=== PATIENT | female | born 1970 | race Caucasian/White ===

== ENCOUNTER 2017-05-16 10:42 | Emergency (ER) | payer MEDICAID ==
[~2017-05-16] VITALS: Ht 157.5 cm; Wt 94.5 kg
[~2017-05-16 10:42] MED LIST: ALBU0.63 NEB; ALBU18HF INH; ALBU8.5H5 INH; ASPI-496 PO; ATOR10TA9 PO; CHLO25TA PO; CITA20TA9 PO; GABA-826 PO; INSU100C5 SQ-INSULIN; INSU100V8 SQ; LISI-170 PO; LISINOPRIL PO; METF10002 PO; METO-93 PO; OMEP-110 PO; SUMA25TA4 PO
[2017-05-16 12:47] VITALS: BP 118/80
== END 2017-05-16 12:49 | disposition home or self-care (01) ==
LOC: ED 12:30
DX: S93.521A Sprain of metatarsophalangeal joint of right great toe, initial encounter (principal); W10.9XXA Fall (on) (from) unspecified stairs and steps, initial encounter; Y93.89 Activity, other specified; Y92.410 Unspecified street and highway as the place of occurrence of the external cause; Y99.8 Other external cause status
CPT/HCPCS: 93005; 99284

== ENCOUNTER 2017-11-16 17:54 | Emergency (ER) | payer MEDICAID, OTHER ==
[~2017-11-16] VITALS: Ht 157.5 cm; Wt 78.9 kg
[2017-11-16] MEDS ORDERED: KETOROLAC 30 MG/1 ML ONE (18:27)
[2017-11-16] MEDS ORDERED: PROCHLORPERAZINE 5 MG/ML, 2ML ONE (18:27)
[2017-11-16] MEDS ORDERED: DIPHENHYDRAMINE 50 MG/ML, 1ML ONE (18:27)
[2017-11-16] MEDS ORDERED: SODIUM CHLORIDE 0.9% 1,000ML IVBOLUS ONE (18:30)
[2017-11-16] MEDS ORDERED: DIPHENHYDRAMINE 50 MG/ML, 1ML IVPush ONE (18:30)
[2017-11-16] MEDS ORDERED: SODIUM CHLORIDE FLUSH 10ML SYR IVF ONE (18:30)
[2017-11-16] MEDS ORDERED: PROCHLORPERAZINE 5 MG/ML, 2ML IVPush ONE (18:30)
[2017-11-16] MEDS ORDERED: KETOROLAC 30 MG/1 ML IVPush ONE (18:30)
[2017-11-16 19:13] LABS: BASOPHILS # (AUTO) 0.02 x10^3/uL (0-0.1); BASOPHILS % (AUTO) 0 % (0-1); EOSINOPHILS # (AUTO) 0.07 x10^3/uL (0-0.4); EOSINOPHILS % (AUTO) 1 % (1-7); LYMPHOCYTES # (AUTO) 2.51 x10^3/uL (1-3.4); LYMPHOCYTES % (AUTO) 42 % (22-44); MD NO; MEAN CORPUSCULAR HEMOGLOBIN 21.4 pg (27.0-34.8); MEAN CORPUSCULAR HGB CONC 31.7 g/dL (32.4-35.8); MEAN CORPUSCULAR VOLUME 67.4 fL (80-100); MEAN PLATELET VOLUME 9.3 fL (7.4-10.4); MONOCYTES # (AUTO) 0.33 x10^3/uL (0.2-0.8); MONOCYTES % (AUTO) 5 % (2-9); NEUTROPHILS # (AUTO) 3.11 x10^3/uL (1.8-6.8); NEUTROPHILS % (AUTO) 52 % (42-75); PLATELET COUNT 319 x10^3/uL (130-400); RED BLOOD COUNT 5.24 x10^6/uL (3.82-5.3); RED CELL DISTRIBUTION WIDTH 19.8 % (9.6-15.2)
[2017-11-16 19:23] LABS: ALBUMIN 3.5 g/dL (3.4-5.0); ANION GAP 7 mmol/L (5-15); CALCIUM 8.6 mg/dL (8.5-10.1); CHLORIDE 109 mmol/L (98-107); CREATININE 0.78 mg/dL (0.55-1.02)
[2017-11-16 19:32] LABS: MICROSCOPIC INDICATED
[2017-11-16 19:55] LABS: CULTURE INDICATED? NO
[2017-11-16 20:41] VITALS: BP 158/84
== END 2017-11-16 20:42 | disposition home or self-care (01) ==
LOC: ED 19:07
DX: G43.009 Migraine without aura, not intractable, without status migrainosus (principal); I10 Essential (primary) hypertension; E11.9 Type 2 diabetes mellitus without complications
CPT/HCPCS: 36415; 76770; 80048; 81001; 82040; 85025; 96361; 96374; 96375; 99285; J0780; J1200; J1885; J7030

== ENCOUNTER 2018-08-02 17:49 | Emergency (ER) | payer BC ==
[~2018-08-02] VITALS: Ht 157.5 cm; Wt 91.0 kg
[2018-08-02] MEDS ORDERED: SUMATRIPTAN 25 MG TABLET PO PRN (19:00)
[2018-08-02] MEDS ORDERED: ACETAMINOPHEN 500 MG TABLET PO ONE (19:00)
[2018-08-02] MEDS ORDERED: ACETAMINOPHEN 500 MG TABLET ONE (19:05)
[2018-08-02] MEDS ORDERED: SUMATRIPTAN 25 MG TABLET ONE (19:05)
[2018-08-02 19:12] LABS: MEAN CORPUSCULAR HEMOGLOBIN 21.1 pg (27.0-34.8); MEAN CORPUSCULAR HGB CONC 31.7 g/dL (32.4-35.8); MEAN CORPUSCULAR VOLUME 66.4 fL (80-100); MEAN PLATELET VOLUME 8.3 fL (7.4-10.4); PLATELET COUNT 402 x10^3/uL (130-400); RED BLOOD COUNT 4.63 x10^6/uL (3.82-5.3)
[2018-08-02 19:24] LABS: ALBUMIN 3.1 g/dL (3.4-5.0); ANION GAP 8 mmol/L (5-15); CALCIUM 8.4 mg/dL (8.5-10.1); CHLORIDE 112 mmol/L (98-107); CREATININE 0.67 mg/dL (0.55-1.02)
[2018-08-02 19:28] LABS: MD YES
[2018-08-02 19:30] LABS: ANISOCYTOSIS 1+; HYPOCHROMIA 1+; LYMPH#(MANUAL) 2.46 x10^3/uL (1-3.4); LYMPHS% (MANUAL) 41 % (22-44); MICROCYTOSIS 1+; MONOS#(MANUAL) 0.18 x10^3/uL (0.3-2.7); MONOS% (MANUAL) 3 % (2-9); SEG#(MANUAL) 3.36 x10^3/uL (1.8-6.8); SEGS% (MANUAL) 56 % (42-75)
[2018-08-02 19:31] LABS: POLYCHROMASIA 1+
[2018-08-02 19:32] LABS: <PLATELET ESTIMATE> INCREASED; <PLT MORPHOLOGY> NORMAL PLT MORPH; TARGET CELLS 1+
[2018-08-02 20:06] VITALS: BP 172/89
== END 2018-08-02 20:09 | disposition home or self-care (01) ==
LOC: ED 19:00
DX: K02.9 Dental caries, unspecified (principal); K08.89 Other specified disorders of teeth and supporting structures; G43.019 Migraine without aura, intractable, without status migrainosus; I10 Essential (primary) hypertension; F17.200 Nicotine dependence, unspecified, uncomplicated; E11.9 Type 2 diabetes mellitus without complications; J45.909 Unspecified asthma, uncomplicated
CPT/HCPCS: 36415; 80048; 82040; 85025; 99284

== ENCOUNTER 2019-02-10 12:42 | Emergency (ER) | payer SELFPAY ==
[~2019-02-10] VITALS: Ht 157.5 cm; Wt 84.0 kg
--- NOTE | 2019-02-10 14:50 | NUR ---
AMBULATORY TO ROOM AT THIS TIME
--- NOTE | 2019-02-10 15:05 | NUR ---
BODYACHES, CHILLS, KNIGHT, COUGH STARTED SUNDAY
--- NOTE | 2019-02-10 15:12 | NUR ---
LAB AT BEDSIDE OBTAINING BLOOD. TECH IN ROOM TO DO EKG
[2019-02-10] MEDS ORDERED: ACETAMINOPHEN 500 MG TABLET PO ONE (15:30)
[2019-02-10 15:36] LABS: BASOPHILS % (AUTO) 0 % (0-1); EOSINOPHILS % (AUTO) 0 % (1-7); LYMPHOCYTES # (AUTO) 0.23 x10^3/uL (1-3.4); LYMPHOCYTES % (AUTO) 4 % (22-44); MD NO; MEAN CORPUSCULAR HEMOGLOBIN 21.9 pg (27.0-34.8); MEAN CORPUSCULAR HGB CONC 31.7 g/dL (32.4-35.8); MEAN PLATELET VOLUME 9.1 fL (7.4-10.4); MONOCYTES # (AUTO) 0.63 x10^3/uL (0.2-0.8); MONOCYTES % (AUTO) 12 % (2-9); NEUTROPHILS # (AUTO) 4.39 x10^3/uL (1.8-6.8); NEUTROPHILS % (AUTO) 84 % (42-75); PLATELET COUNT 271 x10^3/uL (130-400); RED BLOOD COUNT 5.21 x10^6/uL (3.82-5.3); RED CELL DISTRIBUTION WIDTH 18.5 % (9.6-15.2)
[2019-02-10 15:46] LABS: ALBUMIN 3.9 g/dL (3.4-5.0); ANION GAP 9 mmol/L (5-15); CALCIUM 8.5 mg/dL (8.5-10.1); CHLORIDE 106 mmol/L (98-107); CREATININE 1.04 mg/dL (0.55-1.02)
--- NOTE | 2019-02-10 15:56 | NUR ---
assumed care of pt while primary rn at lunch. flu swab recollected and sent to lab.
--- NOTE | 2019-02-10 16:33 | NUR ---
PT AMBULATED TO BATHROOM WITHOUT ASSISTANCE TO GIVE URINE SAMPLE, USING RAILS ON SIDE
--- NOTE | 2019-02-10 16:40 | NUR ---
TOLERATING ICE CHIPS
[2019-02-10 16:55] LABS: MICROSCOPIC NOT IND
[2019-02-10 17:01] LABS: RAPID INFLUENZA A Negative (Negative); RAPID INFLUENZA B Negative (Negative)
[2019-02-10 17:04] LABS: CULTURE INDICATED? NO
[2019-02-10] MEDS ORDERED: POTASSIUM CHLORIDE 20 MEQ TAB.ER.PRT PO ONE (17:30)
[2019-02-10] MEDS ORDERED: ACETAMINOPHEN 500 MG TABLET ONE (17:52)
[2019-02-10] MEDS ORDERED: POTASSIUM CHLORIDE 20 MEQ TAB.ER.PRT ONE (17:52)
[2019-02-10 18:00] VITALS: BP 149/80
== END 2019-02-10 18:02 | disposition home or self-care (01) ==
LOC: ED 16:24
DX: J06.9 Acute upper respiratory infection, unspecified (principal); E87.6 Hypokalemia; I10 Essential (primary) hypertension; E11.9 Type 2 diabetes mellitus without complications; J45.909 Unspecified asthma, uncomplicated
CPT/HCPCS: 36415; 71046; 80048; 81003; 82040; 83605; 83880; 85025; 87040; 87400; 93005; 99284

== ENCOUNTER 2019-12-04 17:44 | Emergency (ER) | payer OTHER ==
[~2019-12-04] VITALS: Ht 162.6 cm; Wt 78.0 kg
[2019-12-04] MEDS ORDERED: DULO30CA44 PO (18:15)
[2019-12-04] MEDS ORDERED: METHOCARBAMOL 750 MG TABLET PO ONE ×2 (18:30→19:30)
[2019-12-04] MEDS ORDERED: ACETAMINOPHEN 500 MG TABLET PO ONE (18:30)
[2019-12-04] MEDS ORDERED: ACETAMINOPHEN 500 MG TABLET ONE (18:38)
[2019-12-04] MEDS ORDERED: METHOCARBAMOL 750 MG TABLET ONE (18:38)
--- NOTE | 2019-12-04 18:46 | NUR ---
PT MEDICATED AND IS GOING TO CT.
--- NOTE | 2019-12-04 19:02 | NUR ---
[facility] HAND-OFF REPORT TO RNs LORI AND SIVA.
[2019-12-04 19:05] VITALS: BP 143/75
--- NOTE | 2019-12-04 19:06 | NUR ---
Report from Bao LARA. Pt back from CT, side rails up, call light within reach.
== END 2019-12-04 20:02 | disposition home or self-care (01) ==
LOC: ED 19:00
DX: S06.0X0A Concussion without loss of consciousness, initial encounter (principal); M54.2 Cervicalgia; R51 Headache; I10 Essential (primary) hypertension; E11.9 Type 2 diabetes mellitus without complications; Z90.49 Acquired absence of other specified parts of digestive tract; W18.00XA Striking against unspecified object with subsequent fall, initial encounter; Y93.89 Activity, other specified; Y92.009 Unspecified place in unspecified non-institutional (private) residence as the place of occurrence of the external cause; Y99.8 Other external cause status
CPT/HCPCS: 70450; 72125; 99284

== ENCOUNTER 2021-03-19 20:35 | Emergency (ER) | payer OTHER ==
[~2021-03-19] VITALS: Ht 157.5 cm; Wt 90.9 kg
[~2021-03-19 20:35] MED LIST changes: +DULO30CA44 PO
--- NOTE | 2021-03-19 21:07 | NUR ---
BIB EMS FROM HOME, P HAVING LEFT SIDED CHEST PAIN AND FIST STARTED ABOUT A YEAR AGO. PT GIVEN 324 ASPRIN AND PIV PLACED SECOND RIDE [employer]. EKG DONE, PT PLACED ON ALL MONITORS, PT'S DAUGHTER AT BEDSIDE
[2021-03-19] MEDS ORDERED: ONDANSETRON 2MG/ML, 2ML ONE (21:23)
[2021-03-19] MEDS ORDERED: LORazepam 2 MG/ML, 1ML ONE (21:23)
[2021-03-19] MEDS ORDERED: SODIUM CHLORIDE 0.9% 1,000ML IVBOLUS ONE (21:30)
[2021-03-19] MEDS ORDERED: LORazepam 2 MG/ML, 1ML IVPush ONE (21:30)
[2021-03-19] MEDS ORDERED: ONDANSETRON 2MG/ML, 2ML IVPush ONE (21:30)
[2021-03-19] MEDS ORDERED: SODIUM CHLORIDE FLUSH 10ML SYR IVF ONE (21:30)
[2021-03-19 21:54] LABS: BASOPHILS % (AUTO) 0 % (0-1); EOSINOPHILS % (AUTO) 1 % (1-7); LYMPHOCYTES % (AUTO) 20 % (22-44); MEAN CORPUSCULAR HEMOGLOBIN 24.1 pg (27.0-34.8); MEAN CORPUSCULAR HGB CONC 33.5 g/dL (32.4-35.8); MEAN PLATELET VOLUME 8.4 fL (7.4-10.4); MONOCYTES % (AUTO) 6 % (2-9); NEUTROPHILS % (AUTO) 74 % (42-75); PLATELET COUNT 268 x10^3/uL (130-400); RED BLOOD COUNT 4.94 x10^6/uL (3.82-5.3); RED CELL DISTRIBUTION WIDTH 17.8 % (9.6-15.2)
[2021-03-19 22:02] LABS: ALANINE AMINOTRANSFERASE 16 U/L (12-78); ALBUMIN 3.6 g/dL (3.4-5.0); ANION GAP 7 mmol/L (5-15); CALCIUM 8.8 mg/dL (8.5-10.1); CHLORIDE 108 mmol/L (98-107)
[2021-03-19 22:03] LABS: AMPHETAMINE SCREEN, URINE Negative (Negative); BARBITURATE SCREEN, URINE Negative (Negative); BENZODIAZEPINE SCREEN, URINE Negative (Negative); CANNABINOID SCREEN, URINE Positive (Negative); COCAINE SCREEN, URINE Negative (Negative); METHADONE SCREEN, URINE Negative (Negative); OPIATE SCREEN, URINE Negative (Negative)
[2021-03-19 22:12] LABS: ALKALINE PHOSPHATASE 95 U/L (45-117); BILIRUBIN,TOTAL 0.7 mg/dL (0.2-1.0); T4 (THYROXINE) 8.5 mcg/dL (4.8-13.9); TOTAL PROTEIN 7.3 g/dL (6.4-8.2); TROPONIN I < 0.015 ng/mL (0.000-0.045)
[2021-03-19 22:16] LABS: MD SCAN
[2021-03-19] MEDS ORDERED: POTASSIUM CHLORIDE 20 MEQ TAB.ER.PRT ONE (22:28)
[2021-03-19] MEDS ORDERED: POTASSIUM CHLORIDE 20 MEQ TAB.ER.PRT PO ONE (22:30)
[2021-03-19 22:33] VITALS: BP 123/75
== END 2021-03-19 23:17 | disposition home or self-care (01) ==
LOC: ED 21:14
DX: R07.2 Precordial pain (principal); R00.0 Tachycardia, unspecified; F17.210 Nicotine dependence, cigarettes, uncomplicated; F41.1 Generalized anxiety disorder; I10 Essential (primary) hypertension; E11.9 Type 2 diabetes mellitus without complications; E87.6 Hypokalemia; J45.909 Unspecified asthma, uncomplicated; Z90.49 Acquired absence of other specified parts of digestive tract
CPT/HCPCS: 36415; 71045; 80053; 80307; 83735; 84436; 84443; 84484; 85025; 85379; 93005; 96361; 96374; 96375; 99285; 99406; J2060; J2405; J7030